=== PATIENT | female | born 1940 | race Caucasian/White ===

== ENCOUNTER 2021-12-11 22:02 | Inpatient (IN) ==
[2021-12-12] MEDS ORDERED: Naloxone 0.4 MG/ML INJ IVP PRN (00:29)
[2021-12-12] MEDS: Ketorolac 30 MG/ML VIAL IM PRN (03:26)
[2021-12-12] MEDS ORDERED: Morphine Sulfate 2 MG/ML SYRINGE IVP PRN (05:11)
[2021-12-12] MEDS ORDERED: Dextrose 4 GM Chewable Tablets PO PRN (06:59)
[2021-12-12 07:03] LABS: Basophils # 0.1 K/mcL (0.0-0.2); Basophils % 0.7 %; Eosinophils # 0.3 K/mcL (0.0-0.6); Hematocrit 37.7 % (35.3-44.9); Hemoglobin 12.2 g/dL (11.5-15.4); Lymphocytes # 1.2 K/mcL (0.6-4.6); Lymphocytes % 14.7 %; Mean Corpuscular HGB Conc 32.4 g/dL (31.6-35.5); Mean Corpuscular Hemoglobin 27.9 pg (28.0-33.3); Mean Corpuscular Volume 86.1 fL (83.0-100.0); Mean Platelet Volume 9.7 fL (9.4-12.4); Monocytes # 0.9 K/mcL (0.0-1.3); Monocytes % 10.9 %; Neutrophils # 5.7 K/mcL (1.6-8.9); Platelet Count 229 K/mcL (140-400); Red Blood Count 4.38 M/mcL (3.82-4.97); Red Cell Distribution Width 14.8 % (11.5-14.5); Segmented Neutrophils % 68.7 %; White Blood Count 8.2 K/mcL (4.3-11.1)
[2021-12-12 07:15] LABS: INR 1.1; Prothrombin Time 12.2 Seconds (9.4-12.1)
[2021-12-12 07:18] LABS: Activated Partial Thrombo Time 32.5 Seconds (26.0-36.0)
[2021-12-12 07:35] LABS: Albumin 3.9 g/dL (3.5-5.7); Albumin/Globulin Ratio 1.5 (1.1-2.2); Bilirubin,Total 0.6 mg/dL (0.3-1.0); Calcium 9.3 mg/dL (8.6-10.3); Globulin 2.6 g/dL (2.4-3.5); Phosphorous 3.5 mg/dL (2.7-4.5); Potassium 3.9 mEq/L (3.5-5.1); Total Protein 6.5 g/dL (6.4-8.9); Troponin I 0.03 ng/mL (< 0.04)
[2021-12-12] MEDS: Morphine Sulfate 2 MG/ML SYRINGE IVP PRN ×2 (08:36→13:00)
[2021-12-12] MEDS ORDERED: Perflutren Lipid Microsphere 1.3 ML in 0.9 % Sodium Chloride 8.7 ML IVP PRN (10:51)
[2021-12-12] MEDS ORDERED: Insulin LISPRO 300 UNITS/3 ML VIAL SUBQ SCH (12:00)
[2021-12-12] MEDS: *HR* Dextrose 50 % in Water (Syg) 50 ML SYRINGE IVP PRN (12:55)
[2021-12-12] MEDS: Insulin LISPRO 300 UNITS/3 ML VIAL SUBQ SCH (17:25)
[2021-12-13 05:29] LABS: Basophils # 0.1 K/mcL (0.0-0.2); Basophils % 0.8 %; Eosinophils # 0.4 K/mcL (0.0-0.6); Eosinophils % 6.4 %; Hematocrit 36.9 % (35.3-44.9); Immature Granulocytes % 0.6 % (0-4); Lymphocytes # 0.8 K/mcL (0.6-4.6); Lymphocytes % 12.1 %; Mean Corpuscular HGB Conc 32.5 g/dL (31.6-35.5); Mean Corpuscular Hemoglobin 27.9 pg (28.0-33.3); Mean Corpuscular Volume 85.8 fL (83.0-100.0); Mean Platelet Volume 10.3 fL (9.4-12.4); Monocytes # 0.8 K/mcL (0.0-1.3); Monocytes % 11.9 %; Neutrophils # 4.5 K/mcL (1.6-8.9); Platelet Count 204 K/mcL (140-400); Red Cell Distribution Width 14.9 % (11.5-14.5); Segmented Neutrophils % 68.2 %; White Blood Count 6.6 K/mcL (4.3-11.1)
[2021-12-13 05:37] LABS: INR 1.1; Prothrombin Time 12.3 Seconds (9.4-12.1)
[2021-12-13 05:53] LABS: Estimated Average Glucose 128 mg/dl; Hemoglobin A1C 6.1 %; Thyroid Stimulating Hormone 3.275 mcIU/mL (0.340-5.600)
[2021-12-13 06:00] LABS: BUN/Creatinine Ratio 26 (6-26); Blood Urea Nitrogen 25 mg/dL (8-23); Calcium 9.2 mg/dL (8.6-10.3); Carbon Dioxide 29 mEq/L (23-29); Chloride 95 mEq/L (98-107); Glucose 99 mg/dL (70-105); Osmolality,Calculated 278 (280-300); Potassium 4.2 mEq/L (3.5-5.1); Sodium 132 mEq/L (136-145); eGFR For African Americans > 60 (> 60); eGFR For Non-African Americans 55 (> 60)
[2021-12-13] MEDS ORDERED: Regadenoson 0.4 MG/5 ML SYRINGE IVP ONE (06:12)
[2021-12-13] MEDS: Morphine Sulfate 2 MG/ML SYRINGE IVP PRN ×2 (07:40→22:16)
[2021-12-13] MEDS: Insulin LISPRO 300 UNITS/3 ML VIAL SUBQ SCH ×2 (07:42→11:30)
[2021-12-13] MEDS: Ondansetron 4 MG/2 ML VIAL IVP PRN ×2 (07:46→22:16)
[2021-12-13] MEDS ORDERED: Fluticasone Propionate Nasal 50 MCG/SPRAY BOTTLE NS PRN (09:04)
[2021-12-13] MEDS: *HR* Dextrose 50 % in Water (Syg) 50 ML SYRINGE IVP PRN (11:26)
[2021-12-13] MEDS: hydroCHLOROthiazide 25 MG TABLET PO SCH (11:29)
[2021-12-13] MEDS: Metoprolol XL (24 HR) Succ 50 MG TAB.ER.24H PO SCH (11:29)
[2021-12-13] MEDS: Sucralfate 1 GM TABLET PO SCH ×2 (11:29→16:39)
[2021-12-13] MEDS: Ketorolac 30 MG/ML VIAL IM PRN ×2 (11:30→19:56)
[2021-12-13] MEDS: D5% in Water 1,000 ML IVC PRN (11:48)
[2021-12-14 05:07] LABS: Basophils # 0.1 K/mcL (0.0-0.2); Basophils % 0.5 %; Eosinophils # 0.4 K/mcL (0.0-0.6); Eosinophils % 4.8 %; Hematocrit 33.6 % (35.3-44.9); Hemoglobin 11.1 g/dL (11.5-15.4); Immature Granulocytes % 0.4 % (0-4); Lymphocytes # 1.3 K/mcL (0.6-4.6); Lymphocytes % 14.2 %; Mean Corpuscular Hemoglobin 27.8 pg (28.0-33.3); Mean Corpuscular Volume 84.2 fL (83.0-100.0); Mean Platelet Volume 9.9 fL (9.4-12.4); Monocytes # 1.4 K/mcL (0.0-1.3); Monocytes % 15.7 %; Neutrophils # 5.9 K/mcL (1.6-8.9); Platelet Count 211 K/mcL (140-400); Red Blood Count 3.99 M/mcL (3.82-4.97); Red Cell Distribution Width 14.9 % (11.5-14.5); Segmented Neutrophils % 64.4 %; White Blood Count 9.2 K/mcL (4.3-11.1)
[2021-12-14 05:22] LABS: BUN/Creatinine Ratio 26 (6-26); Blood Urea Nitrogen 24 mg/dL (8-23); Calcium 8.8 mg/dL (8.6-10.3); Carbon Dioxide 31 mEq/L (23-29); Chloride 96 mEq/L (98-107); Glucose 106 mg/dL (70-105); Osmolality,Calculated 276 (280-300); Potassium 4.1 mEq/L (3.5-5.1); Sodium 131 mEq/L (136-145); eGFR For African Americans > 60 (> 60); eGFR For Non-African Americans 60 (> 60)
[2021-12-14] MEDS: Metoprolol XL (24 HR) Succ 50 MG TAB.ER.24H PO SCH (07:22)
[2021-12-14] MEDS: Sucralfate 1 GM TABLET PO SCH ×3 (08:05→15:39)
[2021-12-14] MEDS: hydroCHLOROthiazide 25 MG TABLET PO SCH (08:06)
[2021-12-14] MEDS ORDERED: Lidocaine -MPF 2% 2 ML VIAL ONE (09:13)
[2021-12-14] MEDS ORDERED: *HR* FentaNYL (PF) 100 MCG/2 ML VIAL ONE (09:13)
[2021-12-14] MEDS ORDERED: Ondansetron 4 MG/2 ML VIAL ONE (09:13)
[2021-12-14] MEDS ORDERED: *HR* Propofol 200 MG/20 ML VIAL IVP ONE (09:13)
[2021-12-14] MEDS ORDERED: ROPIVACAINE/PF/NS 0.25% 1 EACH SYRINGE INTRAART ONE (10:23)
[2021-12-14] MEDS ORDERED: Ropivacaine/PF 0.5% 30 ML VIAL ONE (10:23)
[2021-12-14] MEDS ORDERED: Famotidine 20 MG/2 ML VIAL IVP ONE (10:27)
[2021-12-14] MEDS ORDERED: Promethazine 6.25 MG in Water for inj. (sterile) 20 ML IVPB PRN (10:27)
[2021-12-14] MEDS ORDERED: *HR* OxyCODONE Immed Rel 5 MG TABLET PO PRN (10:27)
[2021-12-14] MEDS ORDERED: Acetaminophen IV 1,000 MG/100 ML BAG IVPB ONE (10:27)
[2021-12-14] MEDS ORDERED: *HR* Labetalol 20 MG/4 ML SYRINGE IVP PRN (10:27)
[2021-12-14] MEDS ORDERED: *HR* HYDROmorphone 2 MG TABLET PO PRN (10:27)
[2021-12-14] MEDS ORDERED: *HR* HYDROmorphone (PF) 1 MG/ML SYRINGE IVP PRN (10:27)
[2021-12-14] MEDS ORDERED: Ringers Solution, Lactated 1,000 ML IVC SCH (11:00)
[2021-12-14] MEDS ORDERED: EPHEDrine 50 MG/ML VIAL ONE (11:25)
[2021-12-15 05:36] LABS: Basophils % 0.1 %; Eosinophils % 0.1 %; Hematocrit 30.4 % (35.3-44.9); Hemoglobin 10.1 g/dL (11.5-15.4); Immature Granulocytes % 0.6 % (0-4); Lymphocytes # 0.9 K/mcL (0.6-4.6); Lymphocytes % 10.8 %; Mean Corpuscular HGB Conc 33.2 g/dL (31.6-35.5); Mean Corpuscular Hemoglobin 27.7 pg (28.0-33.3); Mean Corpuscular Volume 83.5 fL (83.0-100.0); Mean Platelet Volume 10.4 fL (9.4-12.4); Monocytes % 11.8 %; Neutrophils # 6.2 K/mcL (1.6-8.9); Platelet Count 200 K/mcL (140-400); Red Blood Count 3.64 M/mcL (3.82-4.97); Red Cell Distribution Width 14.7 % (11.5-14.5); Segmented Neutrophils % 76.6 %; White Blood Count 8.1 K/mcL (4.3-11.1)
[2021-12-15 05:42] LABS: BUN/Creatinine Ratio 26 (6-26); Blood Urea Nitrogen 21 mg/dL (8-23); Calcium 8.9 mg/dL (8.6-10.3); Carbon Dioxide 28 mEq/L (23-29); Chloride 93 mEq/L (98-107); Glucose 121 mg/dL (70-105); Osmolality,Calculated 268 (280-300); Sodium 127 mEq/L (136-145); eGFR For African Americans > 60 (> 60); eGFR For Non-African Americans > 60 (> 60)
[2021-12-15] MEDS: CeFAZolin 2,000 MG/120 ML BAG IVPB SCH ×3 (05:46→20:44)
[2021-12-15] MEDS: hydroCHLOROthiazide 25 MG TABLET PO SCH (08:26)
[2021-12-15] MEDS: Metoprolol XL (24 HR) Succ 50 MG TAB.ER.24H PO SCH (08:26)
[2021-12-15] MEDS: Sucralfate 1 GM TABLET PO SCH ×3 (08:26→16:28)
[2021-12-15] MEDS: *HR* Dextrose 50 % in Water (Syg) 50 ML SYRINGE IVP PRN (11:33)
[2021-12-15] MEDS: Ondansetron 4 MG/2 ML VIAL IVP PRN (11:34)
[2021-12-15] MEDS: D5% in Water 1,000 ML IVC PRN ×2 (11:34→23:34)
[2021-12-15] MEDS: Morphine Sulfate 2 MG/ML SYRINGE IVP PRN (11:35)
[2021-12-15] MEDS ORDERED: *HR* OxyCODONE/APAP 7.5/325 TABLET PO PRN (13:45)
[2021-12-15] MEDS: Ketorolac 30 MG/ML VIAL IM PRN (20:43)
[2021-12-15] MEDS: *HR* OxyCODONE/APAP 5/325 TABLET PO PRN (23:36)
[2021-12-16 03:37] LABS: Basophils # 0.1 K/mcL (0.0-0.2); Basophils % 0.8 %; Eosinophils # 0.8 K/mcL (0.0-0.6); Eosinophils % 8.8 %; Hematocrit 30.3 % (35.3-44.9); Hemoglobin 10.1 g/dL (11.5-15.4); Immature Granulocytes % 1.7 % (0-4); Lymphocytes # 1.4 K/mcL (0.6-4.6); Mean Corpuscular HGB Conc 33.3 g/dL (31.6-35.5); Mean Corpuscular Hemoglobin 28.1 pg (28.0-33.3); Mean Corpuscular Volume 84.4 fL (83.0-100.0); Monocytes # 1.5 K/mcL (0.0-1.3); Monocytes % 16.8 %; Platelet Count 203 K/mcL (140-400); Red Blood Count 3.59 M/mcL (3.82-4.97); Segmented Neutrophils % 55.9 %; White Blood Count 8.9 K/mcL (4.3-11.1)
[2021-12-16 03:52] LABS: BUN/Creatinine Ratio 24 (6-26); Blood Urea Nitrogen 24 mg/dL (8-23); Calcium 8.6 mg/dL (8.6-10.3); Carbon Dioxide 29 mEq/L (23-29); Chloride 87 mEq/L (98-107); Glucose 113 mg/dL (70-105); Osmolality,Calculated 257 (280-300); Potassium 3.6 mEq/L (3.5-5.1); Sodium 121 mEq/L (136-145); eGFR For African Americans > 60 (> 60); eGFR For Non-African Americans 54 (> 60)
[2021-12-16] MEDS ORDERED: 0.9 % Sodium Chloride 1,000 ML IVC SCH (07:30)
[2021-12-16] MEDS: Sucralfate 1 GM TABLET PO SCH ×3 (07:53→16:16)
[2021-12-16 08:27] LABS: BUN/Creatinine Ratio 24 (6-26); Blood Urea Nitrogen 22 mg/dL (8-23); Calcium 8.7 mg/dL (8.6-10.3); Carbon Dioxide 29 mEq/L (23-29); Chloride 86 mEq/L (98-107); Glucose 97 mg/dL (70-105); Osmolality,Calculated 253 (280-300); Potassium 3.5 mEq/L (3.5-5.1); Sodium 120 mEq/L (136-145); eGFR For African Americans > 60 (> 60); eGFR For Non-African Americans 59 (> 60)
[2021-12-16] MEDS ORDERED: Sennosides 8.6 MG TABLET PO ONE (09:10)
[2021-12-16] MEDS: Metoprolol XL (24 HR) Succ 50 MG TAB.ER.24H PO SCH (10:06)
[2021-12-16] MEDS: cephALEXin 500 MG CAPSULE PO SCH ×2 (10:07→21:45)
[2021-12-16] MEDS: Aspirin Enteric Coated 325 MG Tablet PO SCH (10:11)
[2021-12-16] MEDS: *HR* OxyCODONE/APAP 5/325 TABLET PO PRN (11:53)
[2021-12-16 12:45] LABS: BUN/Creatinine Ratio 24 (6-26); Blood Urea Nitrogen 20 mg/dL (8-23); Calcium 8.9 mg/dL (8.6-10.3); Carbon Dioxide 29 mEq/L (23-29); Chloride 88 mEq/L (98-107); Glucose 129 mg/dL (70-105); Osmolality,Calculated 258 (280-300); Potassium 3.6 mEq/L (3.5-5.1); Sodium 122 mEq/L (136-145); eGFR For African Americans > 60 (> 60); eGFR For Non-African Americans > 60 (> 60)
[2021-12-16] MEDS: Dextrose 4 GM Chewable Tablets PO PRN (15:42)
[2021-12-16] MEDS ORDERED: *HR* Dextrose 50 % in Water (Syg) 50 ML SYRINGE IVP ONE (16:15)
[2021-12-16] MEDS ORDERED: D5% in Water 1,000 ML IVC PRN (16:29)
[2021-12-16 18:11] LABS: BUN/Creatinine Ratio 25 (6-26); Blood Urea Nitrogen 21 mg/dL (8-23); Calcium 8.8 mg/dL (8.6-10.3); Carbon Dioxide 28 mEq/L (23-29); Chloride 88 mEq/L (98-107); Glucose 171 mg/dL (70-105); Osmolality,Calculated 261 (280-300); Potassium 3.7 mEq/L (3.5-5.1); Sodium 122 mEq/L (136-145); eGFR For African Americans > 60 (> 60); eGFR For Non-African Americans > 60 (> 60)
[2021-12-16] MEDS: 0.9 % Sodium Chloride 1,000 ML IVC SCH (20:33)
[2021-12-16] MEDS: *HR* Dextrose 50 % in Water (Syg) 50 ML SYRINGE IVP PRN (21:45)
[2021-12-17 00:56] LABS: BUN/Creatinine Ratio 24 (6-26); Blood Urea Nitrogen 19 mg/dL (8-23); Calcium 8.7 mg/dL (8.6-10.3); Carbon Dioxide 28 mEq/L (23-29); Chloride 89 mEq/L (98-107); Glucose 121 mg/dL (70-105); Osmolality,Calculated 258 (280-300); Potassium 4.1 mEq/L (3.5-5.1); Sodium 122 mEq/L (136-145); eGFR For African Americans > 60 (> 60); eGFR For Non-African Americans > 60 (> 60)
[2021-12-17] MEDS: *HR* OxyCODONE/APAP 5/325 TABLET PO PRN ×3 (03:52→17:08)
[2021-12-17] MEDS: 0.9 % Sodium Chloride 1,000 ML IVC SCH ×2 (03:53→10:33)
[2021-12-17 04:44] LABS: BUN/Creatinine Ratio 25 (6-26); Blood Urea Nitrogen 19 mg/dL (8-23); Calcium 8.8 mg/dL (8.6-10.3); Carbon Dioxide 30 mEq/L (23-29); Chloride 90 mEq/L (98-107); Glucose 100 mg/dL (70-105); Osmolality,Calculated 260 (280-300); Potassium 4.4 mEq/L (3.5-5.1); Sodium 124 mEq/L (136-145); eGFR For African Americans > 60 (> 60); eGFR For Non-African Americans > 60 (> 60)
[2021-12-17] MEDS: Sucralfate 1 GM TABLET PO SCH ×3 (08:06→15:05)
[2021-12-17] MEDS: Metoprolol XL (24 HR) Succ 50 MG TAB.ER.24H PO SCH (08:07)
[2021-12-17] MEDS: Aspirin Enteric Coated 325 MG Tablet PO SCH (08:08)
[2021-12-17] MEDS: cephALEXin 500 MG CAPSULE PO SCH ×2 (08:08→20:41)
[2021-12-17 10:56] LABS: BUN/Creatinine Ratio 21 (6-26); Blood Urea Nitrogen 16 mg/dL (8-23); Carbon Dioxide 27 mEq/L (23-29); Chloride 92 mEq/L (98-107); Glucose 90 mg/dL (70-105); Osmolality,Calculated 257 (280-300); Potassium 3.7 mEq/L (3.5-5.1); Sodium 123 mEq/L (136-145); eGFR For African Americans > 60 (> 60); eGFR For Non-African Americans > 60 (> 60)
[2021-12-17] MEDS: Ipratropium/Albuterol Neb 3 ML IH PRN (11:22)
[2021-12-17] MEDS: *HR* Dextrose 50 % in Water (Syg) 50 ML SYRINGE IVP PRN (11:53)
[2021-12-17] MEDS: Acetaminophen 325 MG TABLET PO PRN (15:05)
[2021-12-17 18:32] LABS: BUN/Creatinine Ratio 20 (6-26); Blood Urea Nitrogen 15 mg/dL (8-23); Carbon Dioxide 26 mEq/L (23-29); Chloride 93 mEq/L (98-107); Glucose 120 mg/dL (70-105); Osmolality,Calculated 262 (280-300); Potassium 3.8 mEq/L (3.5-5.1); Sodium 125 mEq/L (136-145); eGFR For African Americans > 60 (> 60); eGFR For Non-African Americans > 60 (> 60)
[2021-12-17 23:50] LABS: BUN/Creatinine Ratio 19 (6-26); Blood Urea Nitrogen 16 mg/dL (8-23); Calcium 8.5 mg/dL (8.6-10.3); Carbon Dioxide 26 mEq/L (23-29); Chloride 95 mEq/L (98-107); Glucose 113 mg/dL (70-105); Osmolality,Calculated 264 (280-300); Potassium 4.4 mEq/L (3.5-5.1); Sodium 126 mEq/L (136-145); eGFR For African Americans > 60 (> 60); eGFR For Non-African Americans > 60 (> 60)
[2021-12-18] MEDS: Dextrose 4 GM Chewable Tablets PO PRN (06:00)
[2021-12-18] MEDS: 0.9 % Sodium Chloride 1,000 ML IVC SCH (06:05)
[2021-12-18] MEDS: Ipratropium/Albuterol Neb 3 ML IH PRN ×2 (06:25→17:16)
[2021-12-18] MEDS: *HR* Dextrose 50 % in Water (Syg) 50 ML SYRINGE IVP PRN (06:39)
[2021-12-18] MEDS: Sucralfate 1 GM TABLET PO SCH ×3 (07:15→15:44)
[2021-12-18] MEDS: Metoprolol XL (24 HR) Succ 50 MG TAB.ER.24H PO SCH (07:15)
[2021-12-18] MEDS: cephALEXin 500 MG CAPSULE PO SCH ×2 (07:15→20:06)
[2021-12-18] MEDS: Aspirin Enteric Coated 325 MG Tablet PO SCH (07:15)
[2021-12-18] MEDS: *HR* OxyCODONE/APAP 5/325 TABLET PO PRN ×2 (09:52→16:05)
[2021-12-18] MEDS: Acetaminophen 325 MG TABLET PO PRN (14:31)
[2021-12-18] MEDS ORDERED: D10% in Water 500 ML IVC SCH (18:45)
[2021-12-19 02:05] LABS: Basophils # 0.1 K/mcL (0.0-0.2); Basophils % 0.9 %; Eosinophils # 0.9 K/mcL (0.0-0.6); Eosinophils % 10.4 %; Hemoglobin 9.6 g/dL (11.5-15.4); Immature Granulocytes % 4.1 % (0-4); Lymphocytes # 1.1 K/mcL (0.6-4.6); Lymphocytes % 12.8 %; Mean Corpuscular Hemoglobin 27.5 pg (28.0-33.3); Mean Platelet Volume 9.9 fL (9.4-12.4); Monocytes # 1.5 K/mcL (0.0-1.3); Monocytes % 17.5 %; Neutrophils # 4.7 K/mcL (1.6-8.9); Platelet Count 233 K/mcL (140-400); Red Blood Count 3.49 M/mcL (3.82-4.97); Segmented Neutrophils % 54.3 %; White Blood Count 8.6 K/mcL (4.3-11.1)
[2021-12-19 02:28] LABS: BUN/Creatinine Ratio 22 (6-26); Blood Urea Nitrogen 17 mg/dL (8-23); Calcium 8.6 mg/dL (8.6-10.3); Carbon Dioxide 26 mEq/L (23-29); Chloride 98 mEq/L (98-107); Glucose 119 mg/dL (70-105); Magnesium 1.7 mg/dL (1.6-2.6); Osmolality,Calculated 273 (280-300); Potassium 4.8 mEq/L (3.5-5.1); Sodium 130 mEq/L (136-145); eGFR For African Americans > 60 (> 60); eGFR For Non-African Americans > 60 (> 60)
[2021-12-19] MEDS: *HR* Dextrose 50 % in Water (Syg) 50 ML SYRINGE IVP PRN ×3 (05:22→16:44)
[2021-12-19] MEDS: Aspirin Enteric Coated 325 MG Tablet PO SCH (08:19)
[2021-12-19] MEDS: Metoprolol XL (24 HR) Succ 50 MG TAB.ER.24H PO SCH (08:20)
[2021-12-19] MEDS: Sucralfate 1 GM TABLET PO SCH ×3 (08:20→14:41)
[2021-12-19] MEDS ORDERED: Isovue-370 500 ML BOTTLE IVP ONE (08:21)
[2021-12-19] MEDS: 0.9 % Sodium Chloride 1,000 ML IVC SCH (08:26)
[2021-12-19 10:36] LABS: C-Peptide 5.8 ng/mL (0.5-3.3)
[2021-12-19 10:44] LABS: Proinsulin Intact 19.1 pmol/L (<=8.0)
[2021-12-19] MEDS ORDERED: Furosemide 40 MG/4 ML VIAL IVP ONE (16:33)
[2021-12-19] MEDS: *HR* OxyCODONE/APAP 5/325 TABLET PO PRN (20:19)
[2021-12-20 02:12] LABS: Basophils # 0.1 K/mcL (0.0-0.2); Eosinophils # 0.9 K/mcL (0.0-0.6); Eosinophils % 9.6 %; Hematocrit 30.5 % (35.3-44.9); Hemoglobin 9.9 g/dL (11.5-15.4); Immature Granulocytes % 2.1 % (0-4); Lymphocytes # 1.3 K/mcL (0.6-4.6); Lymphocytes % 13.4 %; Mean Corpuscular HGB Conc 32.5 g/dL (31.6-35.5); Mean Corpuscular Volume 83.1 fL (83.0-100.0); Mean Platelet Volume 9.3 fL (9.4-12.4); Monocytes # 1.4 K/mcL (0.0-1.3); Monocytes % 14.7 %; Neutrophils # 5.6 K/mcL (1.6-8.9); Platelet Count 256 K/mcL (140-400); Red Blood Count 3.67 M/mcL (3.82-4.97); Red Cell Distribution Width 14.9 % (11.5-14.5); Segmented Neutrophils % 59.2 %; White Blood Count 9.4 K/mcL (4.3-11.1)
[2021-12-20 02:28] LABS: BUN/Creatinine Ratio 17 (6-26); Blood Urea Nitrogen 14 mg/dL (8-23); Calcium 8.8 mg/dL (8.6-10.3); Carbon Dioxide 28 mEq/L (23-29); Chloride 94 mEq/L (98-107); Glucose 110 mg/dL (70-105); Magnesium 1.6 mg/dL (1.6-2.6); Osmolality,Calculated 273 (280-300); Potassium 3.7 mEq/L (3.5-5.1); Sodium 131 mEq/L (136-145); eGFR For African Americans > 60 (> 60); eGFR For Non-African Americans > 60 (> 60)
[2021-12-20] MEDS: Sucralfate 1 GM TABLET PO SCH ×3 (06:06→16:42)
[2021-12-20] MEDS: Metoprolol XL (24 HR) Succ 50 MG TAB.ER.24H PO SCH (10:06)
[2021-12-20] MEDS: Aspirin Enteric Coated 325 MG Tablet PO SCH (10:06)
[2021-12-20] MEDS: *HR* OxyCODONE/APAP 5/325 TABLET PO PRN ×2 (10:06→16:42)
[2021-12-20] MEDS ORDERED: Dextrose 4 GM Chewable Tablets PO SCH (21:00)
[2021-12-20 23:15] VITALS: BP 160/98; PULSE 88; TEMP 97.6; O2SAT 92
== END 2021-12-21 00:40 | disposition short-term general hospital (02) | DRG 492 ==
LOC: 3ANU → SUATTDRO 12-12 00:05 → 4WAOSI 12-12 03:35 → SUATTDRO 12-13 09:20 → 2NNU 12-16 19:29 → 2ANU 12-19 17:20
PROVIDERS: ADMIT Family Medicine; ATTEND Pharmacist